=== PATIENT | female | born 1975 | race Hispanic/Latino ===

== ENCOUNTER 2017-09-24 13:06 | Emergency (ER) | payer MEDICAID, OTHER ==
[~2017-09-24 13:06] MED LIST: LEVO112T7 PO
[2017-09-24] MEDS ORDERED: NEOMYCIN/POLYMYXIN/HC OTIC SUSP 10ML BOTTLE ONE (14:11)
[2017-09-24] MEDS ORDERED: AMOXICILLIN/POTASSIUM CLAV 875-125 TABLET PO ONE (14:12)
== END 2017-09-24 14:38 | disposition home or self-care (01) ==
LOC: EDH 13:06
DX: H60.91 Unspecified otitis externa, right ear (principal); H66.001 Acute suppurative otitis media without spontaneous rupture of ear drum, right ear; E07.9 Disorder of thyroid, unspecified; Z90.49 Acquired absence of other specified parts of digestive tract